=== PATIENT | male | born 1990 | race Hispanic/Latino ===

== ENCOUNTER 2016-08-02 23:39 | Emergency (ER) | payer OTHER ==
[~2016-08-02 23:39] MED LIST: IBUPROFEN800 M1 PO
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
--- NOTE | 2016-08-03 00:24 | RADIOLOGY REPORT ---
EXAMINATION: XR FINGER, RIGHT CLINICAL INFORMATION: Fifth digit pain, laceration COMPARISON: None TECHNIQUE: Three views of the right hand fifth digit. FINDINGS: Osseous alignment is anatomic. No acute fracture is seen. There is suggestion of soft tissue injury along the dorsum of the mid fifth digit. No radiopaque foreign body is identified. IMPRESSION: No fracture identified. Suspect dorsal soft tissue injury of the fifth digit.
[2016-08-03 01:16] VITALS: BP 142/69
== END 2016-08-03 01:27 ==
LOC: ERH 23:39
DX: S93.401A Sprain of unspecified ligament of right ankle, initial encounter (principal); S60.416A Abrasion of right little finger, initial encounter; Y09 Assault by unspecified means; Y92.9 Unspecified place or not applicable; Y93.9 Activity, unspecified
CPT/HCPCS: 73140-RT; 73610-RT